=== PATIENT | female | born 1960 | race Caucasian/White ===

== ENCOUNTER 2019-08-30 06:07 | Inpatient (IN) | payer OTHER ==
[~2019-08-30] VITALS: Ht 162.6 cm; Wt 96.4 kg
[2019-08-30 06:22] VITALS: BP 153/81
--- NOTE | 2019-08-30 08:07 | NUR ---
ALL PAITENT BELONGINGS INCLUDING CLOTHES, WALKER AND PURSE WERE KEPT BY THE PATIENT'S AWILDA LAMB.
--- NOTE | 2019-08-30 13:06 | NUR ---
RECEIVED PT FROM PACU, S/P RIGHT HIP TOTAL REPLACEMENT. PT IS LETHARGIC, ABLE TO FOLLOW COMMANDS, RESPONDS TO TACTILE STIMULI. ORIENTED X3-4. SPEECH IS SLOW. PT STATED THAT SHE HAS MILD SOB, LUNG SOUNDS DIMINISHED ON THE BASES, O2 SAT=94% ON 4LPM/NC. SHALLOW BREATHING NOTED. DENIES CHEST PAIN/PRESSURE. NJ=64. STATED THAT SHE HAS NAUSEA, DENIES ABDOMINAL PAIN. ABDOMEN IS SOFT. BOWEL SOUNDS ACTIVE. W/ SUDANESE 16 LANCASTER CATHETER DRAINING W/ YELLOW COLORED URINE. W/ MEPILEX DRESSING ON THE RIGHT HIP, CDI. DENIES NUMBNESS/TINGLING SENSATION. ABLE TO MOVE ALL EXTREMITIES. IV SITE ON THE LEFT HAND GAUGE 20 IS PATENT AND INTACT. PRIMARY NURSE ISAIAS AT BEDSIDE FOR CONTINUITY OF CARE
[2019-08-30 13:19] VITALS: BP 134/76
--- NOTE | 2019-08-30 13:45 | NUR ---
RECEIVED PATIENT, NOT IN DISTRESS, MEDSURG, R HIP INCISION WITH MIRAPLEX DRESSING IN PLACE. PATIENT IS SEDATED FROM ANESTHESIA AND IS STILL VERY DROWSY. PAIN AT R HIP, 01/10. CALL LIGHT WITHIN REACH. BED AT LOWEST POSITION. SIDE RAILS UP
--- NOTE | 2019-08-30 14:05 | NUR ---
NS INFUSING WELL AT 80CC/HR. NO REDNESS OR SWELLING.
--- NOTE | 2019-08-30 14:21 | NUR ---
TORADOL IVP GIVEN.
--- NOTE | 2019-08-30 14:22 | NUR ---
KETOROLAC IVP GIVEN.
--- NOTE | 2019-08-30 15:12 | NUR ---
PATIENT RESTING COMFORTABLY AND NOT IN DISTRESS. ANCEF INFUSING WELL AT 200CC/HR. NO REDNESS OR SWELLING. CALL LIGHT WITHIN REACH, BED AT LOWEST POSITION, SIDE RAILS UP.
[2019-08-30 16:27] VITALS: BP 129/74
[2019-08-30 16:48] VITALS: BP 129/74
--- NOTE | 2019-08-30 18:24 | NUR ---
PATIENT HAS NO APPETITE . PT ANNE MARIE SEEN PATIENT. TRIED TO SIT PATIENT UP BUT WITH DIFFICULTY. PATIENT ONLY MOVED SIDE TO SIDE.
--- NOTE | 2019-08-30 18:57 | NUR ---
P.T. NOTES P.T. EVAL COMPLETED; WILL BENEFIT W/ P.T. POST ACUTE STAY.
--- NOTE | 2019-08-30 19:00 | NUR ---
PT CAME BY, PER PT ANNE MARIE, PATIENT NOT ABLE TO SIT UP AND ONLY MOVED SIDE TO SIDE. DR LEACH MADE AWARE OF PATIENT'S STATUS, BEING DROWSY AND UNABLE TO MOBILIZE YET . ASKED DR LEACH FOR LANCASTER CATHETER ORDERS IF OK TO LEAVE IN PLACE. PER DR LEACH, MAY LEAVE LANCASTER CATHETER IN PLACE FOR THE NIGHT BUT TAKE OUT FIRST THING IN THE MORNING. WILL FOLLOW UP ORDERS AND MAKE TIRE WORKER NURSE AWARE.
--- NOTE | 2019-08-30 19:05 | NUR ---
RECEIVED PT LAYING IN BED WITH HOB ELEVATED. PT IS AAOX3-4, SLOW SPEECH, DROWSY. ABLE TO MAKE NEEDS KNOWN. M/S PT. DENIES CHEST PAIN/CHEST PRESSURE. PULSES ARE PALPABLE. NO EDEMA NOTED. BREATHING IS EVEN AND UNLABORED ON 4LNC. LUNG SOUNDS DIMINSIHED AT BASES. DENIES SOB. SOB WITH EXERTION. ABD IS SOFT AND NONDISTENDED. BS ACTIVE. DENIES N/V/D. LANCASTER CATHETER IN PLACE DRAINING TO GRAVITY YELLOW URINE. R HIP SIDED WEAKNESS. PER PT AND DAY SHIFT NURSE, UNABLE TO SIT UP IN BED. R HIP SURGICAL INCISION WITH SUTURE, DERMABOND, AND MEPLIEX, CDI. DENIES ANY PAIN AT THIS TIME. PT STATES "THE ANESTHESIA IS WEARING OFF". IV TO LH PATENT AND INTACT RUNNING NS AT 80 CC/HR. NO ERYTHEMA NOTED. BED IN LOWEST POSITION. CALL LIGHT WITHIN REACH. WILL CONTINUE TO MONITOR.
[2019-08-30 20:52] VITALS: BP 112/47
--- NOTE | 2019-08-30 21:15 | NUR ---
ROUTINE MEDICATIONS ADMINISTERED AND TOLERATED WELL. NO ACUTE DISTRESS NOTED. BREATHING IS EVEN AND UNLABORED ON 4LNC. NO RESP DISTRESS NOTED. OFFERED THE PT TORADOL PER JUN ORDER, BUT PT STATES SHE DOEST NOT HAVE ANY PAIN AT THIS TIME, AND THAT IF I CAN CHECK UP ON HER AGAIN IN 1HR. WILL RECHECK PTS PAIN LEVEL IN 1HR. BED IN LOWEST POSITION. CALL LIGHT WITHIN REACH. WILL CONTINUE TO MONITOR.
--- NOTE | 2019-08-30 23:00 | NUR ---
TORADOL ADMINSTERED AT THIS TIME PER MAR ORDER. WILL REASSESS AND CHECK EFFECTIVENESS. BREATHING IS EVEN AND UNLABORED ON 4LNC. NO RESP DISTRESS NOTED. BED IN LOWEST POSITION. CALL LIGHT WITHIN REACH. WILL CONTINUE TO MONITOR.
--- NOTE | 2019-08-31 02:12 | NUR ---
PT RESTING COMFORTABLY. BREATHING IS EVEN AND UNLABORED ON 4LNC. DENIES SOB. PT C/O BARKER, BUT STATES IT'S MOSTLY BC SHE IS SLEEPING UPRIGHT AND IS TOLERABLE AT THIS TIME. LOWERED HOB. ENCOURAGED PT TO USE CALL LIGHT IF PAIN BECOMES INTOLERABLE. PT VERBALIZES UNDERSTANDING. WILL CONTINUE TO MONITOR.
--- NOTE | 2019-08-31 04:05 | NUR ---
PT RESTING COMFORTABLY. BREATHING IS EVEN AND UNLABORED ON 4LNC. NO RESP DISTRESS NOTED. WILL CONTINUE TO MONITOR.
[2019-08-31 05:57] VITALS: BP 110/48
--- NOTE | 2019-08-31 06:26 | NUR ---
LANCASTER CATHETER DC'D AT THIS TIME. OUTPUT OF YELLOW URINE IN LANCASTER CATH IS TOTAL OF 400 CC. PT TOLERATED WELL. COMFORT AND SAFETY MEASURES MAINTAINED. ALL NEEDS ASSESSED AND ATTENDED TO. WILL CONTINUE TO MONITOR AND ENDORSE CARE TO DAY SHIFT NURSE.
[2019-08-31 06:38] LABS: BASOPHIL % 0.1 % (0-2); PLATELET COUNT 200 x10^3mcL (130-400); RED CELL DISTRIBUTION WIDTH 13.1 % (11.5-14.5)
[2019-08-31 06:53] LABS: CALCIUM 8.4 mg/dL (8.5-10.1); CHLORIDE SERUM 106 mmol/L (98-107); CREATININE SERUM 0.7 mg/dL (0.6-1.0); GFR1 > 60 mL/min; GLUCOSE SERUM 105 mg/dL (74-106); POTASSIUM SERUM 4.5 mmol/L (3.5-5.1); SODIUM SERUM 141 mmol/L (136-145)
--- NOTE | 2019-08-31 07:30 | NUR ---
RECIEVED PT FROM PM NURSE. PT IN BED SLEEPING. IV TO LH PATENT, INFUSING WELL. NO REDNESS OR SWELLING. WILL FOLLOW UP WITH AM ASSESSMENT.
[2019-08-31 08:10] VITALS: BP 133/76
[2019-08-31 11:57] VITALS: BP 103/44
--- NOTE | 2019-08-31 12:04 | NUR ---
LATE ENTRY: RECEIVED PATIENT FROM AMINA MARRERO NURSING ASSIGNMENTS HAVE CHANGED. SPOKE WITH PATIENT ABOUT PLAN OF CARE INCLUDING WAITING FOR DR CRANE TO ARRIVE AND SEE PATIENT. PATIENT HAS DRESSING TO R LATERAL THIGH, CDI. NO COMPLAINTS OF PAIN AT THIS TIME AND DENIES NEED FOR PAIN CONTROL. INSTRUCTED PATIENT ON USE OF CALL LIGHT FOR ASSISTANCE WITH BOWEL MOVEMENTS. CALL LIGHT IN REACH.
--- NOTE | 2019-08-31 12:06 | NUR ---
PATIENT IN BED AT THIS TIME,STATES SHE IS FEELING OK. NO FURTHER COMPLAINTS, WILL CONTINUE TO MONITOR. NO SIGNS OF DR CRANE AT THIS TIME.
--- NOTE | 2019-08-31 13:40 | NUR ---
DR. LEACH MADE ROUNDS AND SPOKE TO PATIET WITH REGARDS TO HER CARE. HE WANTS TO DC FLUIDS, APPLY SCDS, AND WANTS A PT EVALUATION DONE. HE WANTS PATIENT TO STAY FOR ONE MORE DAY AND HAVE HER DISCHARGED BY TOMORROW.
--- NOTE | 2019-08-31 15:48 | NUR ---
PHYSICAL THERAPY ARRIVED TO SEE PATIENT.
[2019-08-31 16:41] VITALS: BP 118/56
--- NOTE | 2019-08-31 18:30 | NUR ---
PT IN BED RESTING. PT STATES THAT PAIN HAS IMPROVED TO 2/10 AFTER TYNENOL ADMINISTRATION. WILL ENDORSE CARE TO INCOMING PM NURSE FOR CONTINUITY OF CARE.
--- NOTE | 2019-08-31 19:15 | NUR ---
RECEIVED PATIENT FROM PREVIOUS SHIFT NURSE. PATIENT AWAKE, ALERT AND ORIENTED X4. NO ACUTE DISTRESS. EVEN AND UNLABORED BREATHING, 2L NC. DIMINISHED LUNG SOUNDS AT THE BASES. DENIES ANY PAIN, CHEST PAIN OR SOB AT THIS MOMENT. POSTERIOR HIP PRECAUTIONS IN PLACE. RIGHT HIP SURGICAL INCISION DRESSING CDI. LEFT HAND IV, WNL. NO ERYTHEMA, EDEMA AT IV SITE NOTED. GOOD BLOOD RETURN. SALINE LOCK. ALL SAFETY PRECAUTIONS IN PLACE. BED IN LOWEST POSTION. CALL LIGHT WITHIN REACH.
[2019-08-31 21:10] VITALS: BP 140/52
--- NOTE | 2019-08-31 21:20 | NUR ---
PATIENT C/O 12/11 PAIN. PATIENT BP 140/52. MEDICATED PER JUN.
--- NOTE | 2019-09-01 00:13 | NUR ---
PATIENT REMAINS IN NO ACUTE DISTRESS. NO C/O OF PAIN AT THIS MOMENT. PATIENT SLEEPING. BED IN LOWEST POSITION. CALL LIGHT WITHIN REACH.
[2019-09-01 05:51] VITALS: BP 132/63
--- NOTE | 2019-09-01 06:08 | NUR ---
NO ACUTE DISTRESS. NO C/O PAIN AT THIS MOMENT. ALL SAFETY PRECAUTIONS IN PLACE. EVEN AND UNLABORED BREATING, 2L NC. BED IN LOWEST POSITION. CALL LIGHT WITHIN REACH. WILL ENDORSE CARE TO ONCOMING SHIFT.
[2019-09-01 06:53] LABS: CALCIUM 8.7 mg/dL (8.5-10.1); CARBON DIOXIDE 29.5 mmol/L (21-32); CHLORIDE SERUM 108 mmol/L (98-107); CREATININE SERUM 0.6 mg/dL (0.6-1.0); GFR1 > 60 mL/min; GLUCOSE SERUM 108 mg/dL (74-106); SODIUM SERUM 143 mmol/L (136-145)
[2019-09-01 07:05] LABS: BASOPHIL % 0.4 % (0-2); PLATELET COUNT 208 x10^3mcL (130-400); RED CELL DISTRIBUTION WIDTH 13.4 % (11.5-14.5)
[2019-09-01 07:54] VITALS: BP 127/60
--- NOTE | 2019-09-01 07:54 | NUR ---
RECEIVED PT FROM SENIOR GAMEMASTER RN. AOX4 ABLE TO MAKE NEEDS KNOWN. LUNG SOUNDS DMINISHED AT BASES, ON 2L NC, DENIES SOB/COUGH. BOWEL SOUNDS ACTIVE ON ALL QUADRANTS, ABDOMEN SOFT/ROUND, DENIES N/V/D. S/P HIP TOTAL ARTHROPLASTY, C/O PAIN STATED "I JUST DID MY EXERCISES" WILL MEDICATE FOR PAIN PRN. SUTURES IN PLACE, CDI. IV TO LH PATENT, NO REDNESS OR SWELLING NOTED. CALL LIGHT IN REACH, WILL CONTINUE TO MONITOR.
--- NOTE | 2019-09-01 08:49 | NUR ---
PT RECEIVED MEDICATION AND TOLERATED WELL. MEDICATED FOR PAIN NEEDED FOR PAIN.
[2019-09-01 11:27] VITALS: BP 109/61
[2019-09-01 16:10] VITALS: BP 113/51
--- NOTE | 2019-09-01 19:07 | NUR ---
PT SITTING UP IN BED, SPEAKING WITH FAMILY MEMBER. REPORT GIVEN TO POWER TOOL REPAIR TECHNICIAN RN.
--- NOTE | 2019-09-01 19:10 | NUR ---
RECEIVED PATIENT FROM PREVIOUS SHIFT NURSE. PATIENT IN NO ACUTE DISTRESS. AWAKE, ALERT AND ORIENTED X4. EVEN AND UNLABORED BREATHING. PATIENT DENIES ANY PAIN AT THIS MOMENT. WILL CONTINUE TO MONITOR AND EDUCATED PATIENT ON MANAGING PAIN. DENIES ANY SOB, OR CHEST PAIN/CHEST PRESSURE. 2L NC. RIGHT HIP DRESSING CDI. NO EDEMA NOTED. PULSES +. DIMINISHED LUNG SOUNDS AT THE BASES. ABD SOFT, ROUND AND NON TENDER. DENIES ANY ABD PAIN OR DISCOMFORT. DENIES ANY BARKER OR DIZZINESS. LEFT HAND IV 20G GOOD BLOOD RETURN AND FLUSHING WELL. BED IN LOWEST POSITION. CALL LIGHT WITHIN REACH.
[2019-09-01 19:55] VITALS: BP 141/70
--- NOTE | 2019-09-02 01:24 | NUR ---
PATIENT RESTING COMFORTABLLY. NO C/O PAIN AT THIS MOMENT. NO ACUTE DISTRESS. EVEN AND UNLABORED BREATHING. BED IN LOWEST POSITION. CALL LIGHT WITHIN REACH.
[2019-09-02 05:27] VITALS: BP 114/48
--- NOTE | 2019-09-02 05:38 | NUR ---
REMAINS IN NO ACUTE DISTRESS. PATIENT CURRENTLY SLEEPING COMFORTABLY. NO C/O PAIN AT THIS MOMENT. EVEN AND UNLABORED BREATHING. ALL SAFETY PRECAUTIONS IN PLACE. BED IN LOWEST POSITION. CALL LIGHT WITHIN REACH. WILL ENDORSE CARE TO ONCOMING SHIFT.
[2019-09-02 06:54] LABS: BASOPHIL % 0.5 % (0-2); PLATELET COUNT 219 x10^3mcL (130-400); RED CELL DISTRIBUTION WIDTH 13.3 % (11.5-14.5)
[2019-09-02 07:06] LABS: CALCIUM 8.8 mg/dL (8.5-10.1); CARBON DIOXIDE 30.3 mmol/L (21-32); CHLORIDE SERUM 106 mmol/L (98-107); CREATININE SERUM 0.6 mg/dL (0.6-1.0); GFR1 > 60 mL/min; GLUCOSE SERUM 108 mg/dL (74-106); POTASSIUM SERUM 4.1 mmol/L (3.5-5.1); SODIUM SERUM 142 mmol/L (136-145)
--- NOTE | 2019-09-02 07:30 | NUR ---
RECEIVED PT FROM FROM MAGGIE RN PM AT BEDSIDE, PT SLEEPING IN BED, IN NO APPARENT ACUTE DISTRESS, NO PAIN/DISCOMFORT NOTED, NO FACIAL DROOP, RESP E/U, 2L/MIN, NC, 98%, LUNGS DIM BLL, MEDSURG, ABD ROUND/NON-TENDER TO TOUCH, BS ACTIVE X 4, IV PATENT, DRESSING CDI, SKIN C/D/W, SEE SHIFT ASSESSMENT, PALP PULSE, CAP REFILL < 2S, RIGHT HIP SIRGICAL DRESSING C/D/W, AMBULATORY W/ ASSIST, PT EVAL PER PROTOCOL, CONTINENT, BEDPAN AT THIS TIME, ALL NEEDS ADDRESSED, SAFETY PROTOCOL [id number], CONTINUE TO MONITOR
[2019-09-02 08:26] VITALS: BP 99/57
--- NOTE | 2019-09-02 09:55 | NUR ---
AM MED GIVEN PER MD ORDER, TOLERATED WELL, NO ASE NOTED AT THIS TIME, EDUCATED PT R/T MED, ASE AND MONITOR, VERBALLY UNDERSTANDING, ALL NEEDS ADDRESSED, PT TOLERATED BREAKFAST WELL, PT AWARE TO ASK FOR PAIN EVAL AND PAIN MEDICATED PRIOR PT EVAL AND PRATICE, VERBALLY UDNERSTANDING, ALL NEEDS ADDRESED, SAFETY PROTOCOL FOLLOWED, CONTINUE TO MONITOR
[2019-09-02 10:51] VITALS: BP 99/57
--- NOTE | 2019-09-02 12:13 | NUR ---
PT RETING IN BED, IN NO ACUTE DISTRESS, DENIED PAIN/DISCOMFORT AT THIS TIME, ALL NEEDS ADDRESSED, SAFETY PROTOCOL FOLLOWED, CONTINUE TO MONITOR
--- NOTE | 2019-09-02 15:39 | NUR ---
PT AMBULATORY TO BATHROOM W/ NURSE ASSIST, BM X 1, LARGE, SOFT PER PT REPORT, BACK TO BED, TOLERATED WELL, DENIED PAIN/DISCOMFRT AT THIS TIME, PER PT, GEN P/U AT 1800 AFTER WORK, ALL NEEDS ADDRESSED, SAFETY PROTOCOL FOLLOWED, CONTINUE TO MONITOR
--- NOTE | 2019-09-02 16:25 | NUR ---
PT REPORTED MOD PAIN TO RIGHT HIP SURGICAL AREA, 09/10, PRN MED GIVEN PER MD ORDER, TOLERATED WELL, NO ASE NOTED AT THIS TIME, EDUCATED PT R/T MED, ASE AND MONITOR, VERBALLY UNDERSTANIDNG WELL, ALL NEEDS ADDRESSED, SAFETY PROTOCOL FOLLOWED, CONTINUE TO MONITOR
--- NOTE | 2019-09-02 17:40 | NUR ---
PT SEEN BY DR PFEIFFER PRIOR DC, EDUCATED PT R/T WOUND INFECTION RECOGNITION, MED, ASE AND MONITOR, F/U APPOINTMENT, HOME HEALTH PT, QUESTION ASKED AND ANSWERED, NO FURTHER CONCERN NEEDED WHEN ASKED, PT SIGNED DC PAPER, COPY KEPT IN CHART, PT REFUSED PAIN/DISCOMFRT AT THIS TIME, IN NO ACUTE DISTRESS, IV REMOVED, NO ACTIVE BLEEDING NOTED, PT ASSISTED TO TRUCK BY 2 NURSES, PT DC HOME W/ AND FAMILY.
== END 2019-09-02 17:38 | disposition home health service (06) | DRG 301 ==
LOC: DS → MU 12:12 → DS 15:19 → MU 09-02 17:38
PROVIDERS: ADMIT Orthopaedic Surgery
PROC: 0SR90JA Replacement of Right Hip Joint with Synthetic Substitute, Uncemented, Open Approach (ICD-10-PCS; principal; 2019-08-30 07:30)
DX: M16.11 Unilateral primary osteoarthritis, right hip (principal); I10 Essential (primary) hypertension
CPT/HCPCS: 97110-GP; 97112-GP; 97116-GP; 97530-GP; C9803-CS; G0378; J0690; J1170; J1885; J2270; J2405; J3010; J3490; J7030; Q0092; U0003-CS